=== PATIENT | female | born 2000 | race Caucasian/White ===

== ENCOUNTER 2023-03-31 14:11 | Emergency (ER) | payer OTHER, MEDICAID, SELFPAY ==
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
[2023-03-31 14:30] VITALS: BP 140/86; PULSE 95; RESP 16; TEMP 36.8; O2SAT 98; BMI 19.7
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
== END 2023-03-31 16:58 | disposition home or self-care (01) ==
PROVIDERS: Emergency Provider Emergency Medicine
DX: S46.912A Strain of unspecified muscle, fascia and tendon at shoulder and upper arm level, left arm, initial encounter (principal); V47.5XXA Car driver injured in collision with fixed or stationary object in traffic accident, initial encounter; Y93.89 Activity, other specified; Y92.411 Interstate highway as the place of occurrence of the external cause; Y99.9 Unspecified external cause status
CPT/HCPCS: 73030; 99282; 99283